=== PATIENT | male | born 1995 | race Hispanic/Latino ===

== ENCOUNTER 2018-07-07 12:06 | Emergency (ER) | payer MEDICARE ==
[2018-07-07 12:16] VITALS: O2SAT 99; BMI 21.5
[2018-07-07] MEDS ORDERED: Sodium Chloride 0.9% 1,000 ML IV STA (12:46)
--- NOTE | 2018-07-07 12:56 | ED PDOC ---
HPI: Abdomen Time Seen by Provider: 07/07/18 12:21 Chief Complaint (Nursing): GI Problem Chief Complaint (Provider): RLQ today, constipation for 3-4 days History Per: Patient History/Exam Limitations: no limitations Onset/Duration Of Symptoms: Days Outside of [place] travel?: No Current Symptoms Are (Timing): Still Present Location Of Pain/Discomfort: RLQ Quality Of Discomfort: Sharp Associated Symptoms: Nausea, Loss Of Appetite. denies: Fever, Chills, Vomiting Exacerbating Factors: None Additional Complaint(s): 23 yo male with history on constipation presents with RLQ pain and constipation x 4 days. Pt states he has also had intermittent bright red blood on toilet paper when he wipes. Pt seen at an urgent care and instructed to come to the ER for evaluation. Pt reports feeling some nausea today. No fever/chills. Past Medical History Reviewed: Historical Data, Nursing Documentation, Vital Signs Vital Signs: Last Vital Signs Temp 98.6 F 07/07/18 12:15 Pulse 75 07/07/18 12:15 Resp 16 07/07/18 12:15 BP 137/80 07/07/18 12:15 Pulse Ox 99 07/07/18 12:56 - Medical History PMH: No Chronic Diseases - Surgical History Surgical History: No Surg Hx - Family History Family History: States: No Known Family Hx - Living Arrangements Living Arrangements: With Family - Social History Current smoker - smoking cessation education provided: No - Allergies Allergies/Adverse Reactions: Allergies Allergy/AdvReac Type Severity Reaction Status Date / Time amoxicillin Allergy RASH Verified 07/07/18 12:32 Review of Systems ROS Statement: Except As Marked, All Systems Reviewed And Found Negative Constitutional: Negative for: Fever, Chills Gastrointestinal: Positive for: Nausea, Abdominal Pain, Constipation, Other. Negative for: Vomiting, Diarrhea Physical Exam - Reviewed Nursing Documentation Reviewed: Yes Vital Signs Reviewed: Yes - Physical Exam Appears: Positive for: Well, Non-toxic, No Acute Distress Head Exam: Positive for: ATRAUMATIC, NORMAL INSPECTION, NORMOCEPHALIC Skin: Positive for: Normal Color, Warm, DRY Eye Exam: Positive for: Normal appearance ENT: Positive for: Normal ENT Inspection Neck: Positive for: Normal, Painless ROM Cardiovascular/Chest: Positive for: Regular Rate, Rhythm Respiratory: Positive for: Normal Breath Sounds. Negative for: Accessory Muscle Use, Respiratory Distress Gastrointestinal/Abdominal: Positive for: Normal Exam, Soft, Tenderness (RLQ) Back: Positive for: Normal Inspection Extremity: Positive for: Normal ROM Neurologic/Psych: Positive for: Alert, Oriented - Laboratory Results Result Diagrams: 07/07/18 12:55 07/07/18 13:00 - ECG O2 Sat by Pulse Oximetry: 99 Medical Decision Making Medical Decision Making: WBC - 12.5 CT without inflammation however appendix not visualized. Discussed with with Dr. Julio, operating room surgical technologist. Recommend patient to stay in Hospital overnight for serial abdominal exams. Pt does not want to stay. Copies of labs and CT given. AMA. Pt aware of complications of leaving including appendicitis, perforation, sepsis and . Disposition - Clinical Impression Clinical Impression: Abdominal pain - Disposition Referrals: FAMILY PROVIDER,NO [Primary Care Provider] - Disposition: Against Medical Advice Disposition Time: 16:36 Condition: STABLE Instructions: Acute Abdomen (Belly Pain) Forms: [facility] ([place])
[2018-07-07 13:28] LABS: BASO % 0.4 % (0.0-2.0); EOS # 0.1 K/uL (0.0-0.7); EOS % 0.7 % (0.0-4.0); LYMPH # 1.8 K/uL (1.0-4.3); LYMPH % 14.7 % (20.0-40.0); MEAN CELL VOLUME 87.2 fl (80.0-94.0); MEAN CORPUSCULAR HEMOGLOBIN 29.6 pg (27.0-31.0); MEAN CORPUSCULAR HGB CONC 33.9 g/dL (33.0-37.0); MEAN PLATELET VOLUME 6.2 fl (7.2-11.7); MONO # 0.9 K/uL (0.0-0.8); MONO % 7.7 % (0.0-10.0); NEUT # 9.4 K/uL (1.8-7.0); NEUT % 76.5 % (50.0-75.0); RBC 4.72 Mil/uL (4.40-5.90); RED CELL DISTRIBUTION WIDTH 13.2 % (11.5-14.5); WHITE BLOOD COUNT 12.3 K/uL (4.8-10.8)
[2018-07-07 13:38] LABS: ALB/GLOB RATIO 1.3 (1.0-2.1); ALBUMIN 4.5 g/dL (3.5-5.0); ALT/SGPT 34 U/L (21-72); AST/SGOT 43 U/L (17-59); BLOOD UREA NITROGEN 8 mg/dl (9-20); CALCIUM 9.8 mg/dL (8.4-10.2); GFR NON-AFRICAN AMERICAN > 60
[2018-07-07] MEDS ORDERED: Sodium Chloride 0.9% 50 ML IV ONE (13:47)
[2018-07-07] MEDS ORDERED: Iohexol 300 100 ML IJ ONE (13:47)
--- NOTE | 2018-07-07 15:31 | CT ---
Date of service: 07/07/2018 PROCEDURE: CT Abdomen and Pelvis with Oral contrast. HISTORY: Right lower quadrant pain, nausea, constipation COMPARISON: No prior study available for comparison TECHNIQUE: Contiguous axial images of the abdomen and helical/transaxial sections of the abdomen pelvis performed following intravenous injection of approximately 95 cc Omnipaque 300 contrast material. Additional 2D sagittal and coronal reformats generated. This CT exam was performed using one or more of the following dose reduction techniques: Automated exposure control, adjustment of the mA and/or kV according to patient size, and/or use of iterative reconstruction technique. Radiation dose: Total exam DLP = 346.81 mGy-cm. FINDINGS: LOWER THORAX: Unremarkable. LIVER: Liver is mildly enlarged measuring nearly 19 cm in CC dimension. The. Mild fatty hepatic infiltration. No obvious hepatic mass collection or calcification. Portal and splenic veins are opacified. GALLBLADDER AND BILE DUCTS: Gallbladder is physiologically distended. No evidence of intraluminal gallbladder calculi. PANCREAS: Unremarkable. No mass. No ductal dilatation. SPLEEN: Spleen exhibits relatively normal size without mass collection or calcification. ADRENALS: There are no adrenal lesions seen. KIDNEYS AND URETERS: Kidneys demonstrate symmetric nephrograms. No evidence of nephrolithiasis or hydronephrosis BLADDER: Urinary bladder is physiologically distended. REPRODUCTIVE: There is a serpiginous area of enhancement within the right aspect of the scrotal sac that appears to be extrinsic to the right testicle. . . Linear of vascular type enhancement also noted in the right inguinal canal extending at and contiguous with this lesion. Findings most likely represent a right-sided scrotal varicocele. . APPENDIX: The appendix is not seen with complete certainty on this exam. No definitive secondary signs of acute appendicitis however clinical correlation with physical exam history and laboratory values as the possibility of a very early acute appendicitis cannot be excluded. BOWEL: Evaluation of the bowel is limited due to the lack of oral contrast material. The stomach is incompletely distended which presumably accounts for thick-walled appearance. Visualized loops of small bowel exhibit normal contour and caliber. No evidence of acute mechanical small bowel obstruction. There is a moderate amount of stool within the cecum, ascending and transverse as well as distal sigmoid and rectum consistent with this patient's history of mild fecal retention/constipation. . No definitive abnormal colonic mural wall thickening PERITONEUM: Unremarkable. No fluid collection. No free air. LYMPH NODES: Unremarkable. No enlarged lymph nodes. VASCULATURE: Unremarkable. No aortic aneurysm. BONES: No fracture or destructive lesion. OTHER FINDINGS: None. IMPRESSION: Borderline/mild hepatomegaly. Mild fatty hepatic infiltration. Findings suggest mild constipation. Note that the appendix is not seen. While there are no obvious an inflammatory changes right lower quadrant of the abdomen to suggest acute appendicitis possibility of a very early acute appendicitis cannot be excluded based on this exam and therefore clinical correlation with history physical and laboratory values. Findings most consistent with a right-sided varicocele.
--- NOTE | 2018-07-07 16:52 | CP.PCM.CON ---
History of Present Illness - History of Present Illness History of Present Illness: Surgery: Dr. Colvin CC: Abd pain HPI: 23M w. no pmh presents to ED w. RLQ abd pain x 12hrs. Pt states that he has been having intermittent throbbing pain that is worse w. activity and improved with rest. He denies any changes in appetite, denies N/V. Reports subjective fever, no chills. Pt does report being constipated for the past 2 weeks. He reports having painful bowel movements and has noticed blood on the toilet paper with wiping. He states that he has been constipated in the past, but has not had pain of this severity w. BMs. He has not tried any stool softeners or laxatives. PMH: none PSH: Inguinal hernia x 2, ventral hernia, L shoulder Meds: none ALL: amoxicillin > rash Social: Social ETOH no tobacco/drugs Fhx: non-contributory Review of Systems - Review of Systems All systems: reviewed and no additional remarkable complaints except (HPI) Past Patient History - Infectious Disease Hx of Infectious Diseases: None - Past Social History Smoking Status: Never Smoked - PSYCHIATRIC Hx Substance Use: No - SURGICAL HISTORY Hx Herniorrhaphy: Yes Other/Comment: left shoulder sx. Meds Allergies/Adverse Reactions: Allergies Allergy/AdvReac Type Severity Reaction Status Date / Time amoxicillin Allergy RASH Verified 07/07/18 12:32 Physical Exam - Constitutional Appears: Non-toxic, No Acute Distress - Head Exam Head Exam: ATRAUMATIC, NORMOCEPHALIC - Eye Exam Eye Exam: EOMI - ENT Exam ENT Exam: Mucous Membranes Moist - Neck Exam Neck exam: Positive for: Full Rom - Respiratory Exam Respiratory Exam: NORMAL BREATHING PATTERN. absent: Accessory Muscle Use, Respiratory Distress - GI/Abdominal Exam GI & Abdominal Exam: Soft, Tenderness (RLQ). absent: Distended, Firm, Guarding , Rigid Additional comments: +Rovsing, + Obturator, (-) psoas - Rectal Exam Rectal Exam: NORMAL INSPECTION - Extremities Exam Extremities exam: Negative for: calf tenderness, pedal edema - Neurological Exam Neurological exam: Alert, Oriented x3 Results - Vital Signs Recent Vital Signs: Last Vital Signs Temp 98.6 F 07/07/18 12:15 Pulse 75 07/07/18 12:15 Resp 16 07/07/18 12:15 BP 137/80 07/07/18 12:15 Pulse Ox 99 07/07/18 16:36 - Labs Result Diagrams: 07/07/18 12:55 07/07/18 13:00 Labs: Laboratory Results - last 24 hr 07/07/18 07/07/18 12:55 13:00 WBC 12.3 H RBC 4.72 Hgb 14.0 Hct 41.1 MCV 87.2 MCH 29.6 MCHC 33.9 RDW 13.2 Plt Count 355 MPV 6.2 L Neut % (Auto) 76.5 H Lymph % (Auto) 14.7 L [place]eadle % (Auto) 7.7 Eos % (Auto) 0.7 Baso % (Auto) 0.4 Neut # (Auto) 9.4 H Lymph # (Auto) 1.8 B[place]le # (Auto) 0.9 H Eos # (Auto) 0.1 Baso # (Auto) 0.0 Sodium 141 Potassium 4.5 Chloride 103 Carbon Dioxide 31 H Anion Gap 12 BUN 8 L Creatinine 0.9 Est GFR ( Amer) > 60 Est GFR (Non-Af Amer) > 60 Random Glucose 98 Calcium 9.8 Total Bilirubin 0.5 AST 43 ALT 34 Alkaline Phosphatase 75 Total Protein 8.0 Albumin 4.5 Globulin 3.5 Albumin/Globulin Ratio 1.3 - Imaging and Cardiology CT scan - abdomen Status: Image reviewed by me, Report reviewed by me Assessment & Plan - Assessment and Plan (Free Text) Assessment: 23M w. RLQ pain 2/2 constipation vs early appendicitis -Recommend admit to hospital -NPO -IVF -abx -Stool softeners / laxatives -serial abd exams -If no improvement in pain, possible OR in AM for Dx laparoscopy / lap appy -d/w attending Nori PGY4
[2018-07-07 17:28] VITALS: BP 132/74; PULSE 87; RESP 19; TEMP 98.3
== END 2018-07-07 16:45 | disposition left against medical advice (07) ==
LOC: H.ER 12:06 → SUPCPDRO 12:06 → H.ER 16:45
DX: R10.31 Right lower quadrant pain (principal); K59.00 Constipation, unspecified; Z88.0 Allergy status to penicillin
CPT/HCPCS: 74177; 80053; 85025; 99285; J7030; Q9967